=== PATIENT | female | born 1990 | race Hispanic/Latino ===

== ENCOUNTER 2017-10-27 19:49 | Emergency (ER) | payer OTHER ==
[2017-10-27] MEDS ORDERED: SODIUM CHLORIDE 0.9% 1000ML 1,000 ML IV SCH (21:30)
[2017-10-27] MEDS ORDERED: KETOROLAC TROMETHAMINE 30 MG/ML VIAL IV STA (23:13)
[2017-10-28 02:27] VITALS: BP 135/87
== END 2017-10-28 02:28 | disposition home or self-care (01) ==
LOC: FSED 19:49
DX: M79.651 Pain in right thigh (principal); S80.11XA Contusion of right lower leg, initial encounter; S86.211A Strain of muscle(s) and tendon(s) of anterior muscle group at lower leg level, right leg, initial encounter; R26.2 Difficulty in walking, not elsewhere classified; W01.0XXA Fall on same level from slipping, tripping and stumbling without subsequent striking against object, initial encounter; Y93.01 Activity, walking, marching and hiking; Y92.89 Other specified places as the place of occurrence of the external cause; E11.9 Type 2 diabetes mellitus without complications
CPT/HCPCS: 71046; 80053; 81003; 81025; 82553; 84484; 85025; 93005; 93971; 99284; J1885

== ENCOUNTER 2017-12-06 11:56 | Emergency (ER) | payer SELFPAY ==
[~2017-12-06] VITALS: Ht 168.9 cm; Wt 158.8 kg
== END 2017-12-06 12:49 | disposition home or self-care (01) ==
LOC: FSED 11:56
DX: L89.899 Pressure ulcer of other site, unspecified stage (principal); M79.652 Pain in left thigh; E11.9 Type 2 diabetes mellitus without complications; Z87.891 Personal history of nicotine dependence
CPT/HCPCS: 99282

== ENCOUNTER 2018-01-02 22:45 | Emergency (ER) | payer MEDICARE ==
[~2018-01-02] VITALS: Ht 170.2 cm; Wt 163.3 kg
[2018-01-02] MEDS ORDERED: METFORMIN HCL500 MG PO (23:09)
== END 2018-01-02 23:13 | disposition left against medical advice (07) ==
LOC: FSED 22:45
DX: R21 Rash and other nonspecific skin eruption (principal)

== ENCOUNTER 2024-07-17 13:30 | Emergency (ER) | payer OTHER ==
[~2024-07-17] VITALS: Ht 170.2 cm; Wt 166.5 kg
[~2024-07-17 13:30] MED LIST: METFORMIN HCL500 MG PO
[2024-07-17] MEDS ORDERED: METFORMIN HCL500 M2 PO (13:43)
[2024-07-17] MEDS: LIDOCAINE HCL 1% LOCAL INJ 20 ML VIAL INJ ONE (14:02)
[2024-07-17] MEDS: TRAMADOL HCL 50 MG TAB PO ONE (14:29)
[2024-07-17] MEDS: TETANUS/DIPHTHERIA TOX ADULT 0.5 ML SYR IM ONE (14:30)
[2024-07-17] MEDS ORDERED: AMOXICILLIN500 MG PO (15:15)
[2024-07-17] MEDS ORDERED: IBUPROFEN600 MG PO (15:16)
[2024-07-17 15:30] VITALS: PULSE 70; RESP 18; TEMP 98.3; O2SAT 100
== END 2024-07-17 15:30 | disposition home or self-care (01) ==
LOC: FSED 13:35
DX: S01.511A Laceration without foreign body of lip, initial encounter (principal); Y04.0XXA Assault by unarmed brawl or fight, initial encounter; Y92.89 Other specified places as the place of occurrence of the external cause; K08.89 Other specified disorders of teeth and supporting structures; K02.9 Dental caries, unspecified
CPT/HCPCS: 12011; 70450; 70486; 71101; 81003; 81025; 90471; 90714; 96372; 99283; J2003

== ENCOUNTER 2024-07-27 18:45 | Emergency (ER) | payer OTHER ==
[~2024-07-27] VITALS: Ht 170.2 cm; Wt 161.0 kg
[~2024-07-27 18:45] MED LIST changes: +AMOXICILLIN500 MG PO; +IBUPROFEN600 MG PO; +METFORMIN HCL500 M2 PO
[2024-07-27 19:01] VITALS: PULSE 64; RESP 18; TEMP 97.8; O2SAT 99
== END 2024-07-27 19:30 | disposition home or self-care (01) ==
LOC: FSED 18:55
DX: Z48.02 Encounter for removal of sutures (principal)
CPT/HCPCS: 99282

== ENCOUNTER 2024-10-20 18:11 | Emergency (ER) | payer OTHER ==
[~2024-10-20] VITALS: Ht 170.2 cm; Wt 156.3 kg
[2024-10-20 18:30] VITALS: PULSE 86; RESP 18; TEMP 98.4; O2SAT 99
[2024-10-20] MEDS ORDERED: MOUNJARO7.5 MG/0.5 (18:48)
[2024-10-20] MEDS ORDERED: CORICIDIN HBP355 ML PO (18:56)
[2024-10-20] MEDS ORDERED: VENTOLIN HFA18 GM INH (18:57)
== END 2024-10-20 19:04 | disposition home or self-care (01) ==
LOC: FSED 18:34
DX: R05.9 Cough, unspecified (principal); J06.9 Acute upper respiratory infection, unspecified; E11.9 Type 2 diabetes mellitus without complications; K21.9 Gastro-esophageal reflux disease without esophagitis; E66.9 Obesity, unspecified; F41.9 Anxiety disorder, unspecified; F32.A Depression, unspecified; Z11.52 Encounter for screening for COVID-19
CPT/HCPCS: 0223U; 83518; 87400; 99283

== ENCOUNTER 2024-11-09 08:36 | Emergency (ER) | payer OTHER ==
[~2024-11-09] VITALS: Ht 168.9 cm; Wt 152.2 kg
[~2024-11-09 08:36] MED LIST changes: +CORICIDIN HBP355 ML PO; +MOUNJARO7.5 MG/0.5; +VENTOLIN HFA18 GM INH
[2024-11-09 08:40] VITALS: PULSE 82; RESP 20; TEMP 98.5; O2SAT 99
[2024-11-09] MEDS: FLUORESCEIN SOD(OPTH) 1 MG STRP OP ONE (09:07)
[2024-11-09] MEDS: TETRACAINE HCL 0.5% OPTH SOLN 4 ML BTL OP ONE (09:07)
[2024-11-09] MEDS: ERYTHROMYCIN (OPTH) 3.5 GM OINT OP ONE (09:07)
[2024-11-09] MEDS: SODIUM CHLORIDE FLUSH 10 ML SYR IV ONE (09:12)
[2024-11-09] MEDS ORDERED: MOTRIN800 MG PO (09:12)
[2024-11-09] MEDS ORDERED: DIPHENHYDRAMINE25 M2 PO (09:12)
== END 2024-11-09 09:20 | disposition home or self-care (01) ==
LOC: FSED 08:41
DX: H57.11 Ocular pain, right eye (principal); S05.01XA Injury of conjunctiva and corneal abrasion without foreign body, right eye, initial encounter; S05.11XA Contusion of eyeball and orbital tissues, right eye, initial encounter; Y04.0XXA Assault by unarmed brawl or fight, initial encounter; Y92.89 Other specified places as the place of occurrence of the external cause; E11.9 Type 2 diabetes mellitus without complications; J45.909 Unspecified asthma, uncomplicated; K21.9 Gastro-esophageal reflux disease without esophagitis; F41.9 Anxiety disorder, unspecified; F32.A Depression, unspecified; Z98.84 Bariatric surgery status
CPT/HCPCS: 99284

== ENCOUNTER 2024-12-11 22:52 | Emergency (ER) | payer OTHER ==
[~2024-12-11] VITALS: Ht 170.2 cm; Wt 158.8 kg
[~2024-12-11 22:52] MED LIST changes: +DIPHENHYDRAMINE25 M2 PO; +MOTRIN800 MG PO
[2024-12-11 22:59] VITALS: PULSE 96; RESP 18; TEMP 98.3
[2024-12-11] MEDS ORDERED: BACTRIM DS TAB1 EACH PO (23:39)
[2024-12-11] MEDS ORDERED: TRIMETHOPRIM/SULFAMETHOXAZOLE 160-800 MG TAB ONE (23:48)
[2024-12-11] MEDS: TRIMETHOPRIM/SULFAMETHOXAZOLE 160-800 MG TAB PO SCH (23:50)
[2024-12-11] MEDS: HYDROCODONE/APAP 5MG-325MG TAB PO ONE (23:51)
[2024-12-12 00:05] VITALS: BP 131/74; PULSE 96; RESP 18; TEMP 98.3; O2SAT 98
== END 2024-12-11 23:55 | disposition home or self-care (01) ==
LOC: FSED 23:36
DX: L02.413 Cutaneous abscess of right upper limb (principal); L02.211 Cutaneous abscess of abdominal wall; K61.0 Anal abscess; B95.62 Methicillin resistant Staphylococcus aureus infection as the cause of diseases classified elsewhere; E11.9 Type 2 diabetes mellitus without complications; J45.909 Unspecified asthma, uncomplicated; K21.9 Gastro-esophageal reflux disease without esophagitis; F41.9 Anxiety disorder, unspecified; F32.A Depression, unspecified; E66.9 Obesity, unspecified; Z98.84 Bariatric surgery status; F17.210 Nicotine dependence, cigarettes, uncomplicated
CPT/HCPCS: 99282

== ENCOUNTER 2025-03-31 10:18 | Emergency (ER) | payer OTHER ==
[~2025-03-31] VITALS: Ht 170.2 cm; Wt 150.7 kg
[~2025-03-31 10:18] MED LIST changes: +BACTRIM DS TAB1 EACH PO
[2025-03-31 10:25] VITALS: PULSE 58; RESP 18; TEMP 97.7; O2SAT 99
[2025-03-31] MEDS: KETOROLAC TROMETHAMINE 60 MG/2 ML VIAL IM STA (11:10)
[2025-03-31] MEDS: TRAMADOL HCL 50 MG TAB PO STA (11:39)
[2025-03-31] MEDS ORDERED: ULTRAM 50MG50 MG PO (11:44)
== END 2025-03-31 11:50 | disposition home or self-care (01) ==
LOC: FSED 10:26
DX: S06.0XAA Concussion with loss of consciousness status unknown, initial encounter (principal); R51.9 Headache, unspecified; R07.89 Other chest pain; S69.92XA Unspecified injury of left wrist, hand and finger(s), initial encounter; Y04.8XXA Assault by other bodily force, initial encounter; Y92.89 Other specified places as the place of occurrence of the external cause; Z98.84 Bariatric surgery status; E11.9 Type 2 diabetes mellitus without complications; J45.909 Unspecified asthma, uncomplicated; E66.9 Obesity, unspecified; K21.9 Gastro-esophageal reflux disease without esophagitis; F41.9 Anxiety disorder, unspecified; F43.10 Post-traumatic stress disorder, unspecified
CPT/HCPCS: 70450; 70486; 71046; 73130; 99284; J1885

== ENCOUNTER 2025-05-16 14:13 | Emergency (ER) | payer BC, OTHER ==
[~2025-05-16] VITALS: Ht 170.2 cm; Wt 159.4 kg
[~2025-05-16 14:13] MED LIST changes: +ULTRAM 50MG50 MG PO
[2025-05-16] MEDS ORDERED: FAMOTIDINE 20 MG/2 ML VIAL IV STA (15:48)
[2025-05-16] MEDS ORDERED: METHYLPREDNISOLONE SOD SUCC 125 MG/2ML VIAL IV ONE (16:00)
[2025-05-16] MEDS ORDERED: DIPHENHYDRAMINE HCL INJ 50 MG/ML VIAL IV ONE (16:00)
[2025-05-16] MEDS ORDERED: PREDNISONE 20 MG TAB ONE (17:02)
[2025-05-16] MEDS: PREDNISONE 20 MG TAB PO ONE (17:19)
[2025-05-16] MEDS: DIPHENHYDRAMINE HCL 25 MG CAP PO ONE (17:19)
[2025-05-16] MEDS: FAMOTIDINE 20 MG TAB PO ONE (17:20)
[2025-05-16] MEDS ORDERED: MEDROL4 M2 PO (19:29)
[2025-05-16 19:47] VITALS: PULSE 70; RESP 15; TEMP 98.5
[2025-05-16 19:52] VITALS: BP 130/77; PULSE 70; RESP 15; TEMP 98.5; O2SAT 100
== END 2025-05-16 19:57 | disposition home or self-care (01) ==
LOC: FSED 15:01
DX: L50.9 Urticaria, unspecified (principal); T78.40XA Allergy, unspecified, initial encounter; E11.9 Type 2 diabetes mellitus without complications; K21.9 Gastro-esophageal reflux disease without esophagitis; F41.9 Anxiety disorder, unspecified; F32.A Depression, unspecified; F43.10 Post-traumatic stress disorder, unspecified; E66.9 Obesity, unspecified; Z98.84 Bariatric surgery status; F17.210 Nicotine dependence, cigarettes, uncomplicated
CPT/HCPCS: 80053; 85025; 99284; J7512